=== PATIENT | male | born 1965 ===

== ENCOUNTER 2025-07-01 10:43 | Emergency (ER) | payer OTHER ==
[2025-07-01 11:18] VITALS: BP 158/81; O2SAT 96
[2025-07-01] MEDS ORDERED: BUTALB/ACETAMINOPHEN/CAFFEINE 1 TAB TABLET PO ONE (14:45)
[2025-07-01] MEDS ORDERED: AZITHROMYCIN500 MG PO (15:38)
[2025-07-01] MEDS ORDERED: BENZONATATE200 M1 PO (15:38)
[2025-07-01] MEDS ORDERED: PEPCID AC20 MG PO (15:38)
[2025-07-01] MEDS ORDERED: CEFTRIAXONE SODIUM 1,000 MG VIAL IM ONE (15:45)
[2025-07-02 09:10] LABS: COVID-19 AG NEGATIVE (NEGATIVE)
== END 2025-07-01 15:54 | disposition home or self-care (01) ==
LOC: ER 10:43
PROVIDERS: General Practice
DX: J06.9 Acute upper respiratory infection, unspecified (principal); Z20.822 Contact with and (suspected) exposure to COVID-19
CPT/HCPCS: 96372; 99282; J0696